=== PATIENT | female | born 1950 | race Caucasian/White ===

== ENCOUNTER 2019-12-05 10:41 | Outpatient (CLI) | payer MEDICARE ==
--- NOTE | 2019-12-12 11:55 | MMO ---
Bilateral MAMMO Bilat Screen [facility]. CLINICAL HISTORY: Patient is 69 years old and is seen for screening. The patient has no family history of breast cancer. The patient has no personal history of cancer. The patient has a history of right Excisional Biopsy more than 10 years ago - benign. VIEWS: The views performed were: bilateral craniocaudal with tomosynthesis and bilateral mediolateral oblique with tomosynthesis. FILMS COMPARED: The present examination has been compared to prior imaging studies performed at [facility] on 08/26/2015 and 09/09/2017. This study has been interpreted with the assistance of computer-aided detection. MAMMOGRAM FINDINGS: The breasts are heterogeneously dense, which could obscure a lesion on mammography. There are no suspicious masses, suspicious calcifications, or new areas of architectural distortion. IMPRESSION: THERE IS NO MAMMOGRAPHIC EVIDENCE OF MALIGNANCY. A ROUTINE FOLLOW-UP MAMMOGRAM IN 1 YEAR IS RECOMMENDED. THE RESULTS OF THIS EXAM WERE SENT TO THE PATIENT. ACR BI-RADS Category 1 - Negative MAMMOGRAPHY NOTE: 1. A negative mammogram report should not delay a biopsy if a dominant of clinically suspicious mass is present. 2. Approximately 10% to 15% of breast cancers are not detected by mammography. 3. Adenosis and dense breasts may obscure an underlying neoplasm. Reported by: Jeffrey APODACA Electonically Signed: [id number]
== END 2019-12-05 10:42 | disposition home or self-care (01) ==
LOC: BICMAMMO 10:41
PROVIDERS: ATTEND Family Medicine
DX: Z12.31 Encounter for screening mammogram for malignant neoplasm of breast (principal); Z91.89 Other specified personal risk factors, not elsewhere classified
CPT/HCPCS: 77063; 77067

== ENCOUNTER 2020-11-29 08:46 | Outpatient (CLI) | payer MEDICARE | END 2020-11-29 08:47 | disposition home or self-care (01) | LOC: BICMAMMO 08:46 | PROVIDERS: ATTEND Family Medicine | DX: R93.7 Abnormal findings on diagnostic imaging of other parts of musculoskeletal system (principal); M81.0 Age-related osteoporosis without current pathological fracture | CPT/HCPCS: 77080 ==

== ENCOUNTER 2020-12-23 12:43 | Inpatient (IN) | payer MEDICARE ==
[2020-12-23] MEDS ORDERED: Ondansetron PF 4 MG/2 ML Vial ONE (13:07)
[2020-12-23] MEDS ORDERED: Morphine 4 MG/ML VIAL ONE ×2 (13:07→17:36)
[2020-12-23 13:45] LABS: #Basophils 0.1 thou/uL (0.0-0.2); #Eosinphils 0.1 thou/uL (0.0-0.7); #Lymphocytes 1.6 thou/uL (1.20-3.40); #Monocytes 0.6 thou/uL (0.11-0.59); #Neutrophils 5.7 thou/uL (1.40-6.50); %Basophils 0.9 % (0.0-1.0); %Eosinophils 1.3 % (0.0-10.0); %Lymphocytes 20.2 % (21.0-51.0); %Monocytes 6.8 % (0.0-10.0); %Neutrophils 70.8 % (42.0-75.0); Hemoglobin 13.7 g/dL (12.0-16.0); Mean Corpuscular HGB CONC 33.7 g/dL (32.0-36.0); Mean Corpuscular Hemoglobin 32.9 pg (27.0-31.0); Mean Corpuscular Volume 97.3 fL (78.0-98.0); Mean Platelet Volume 10.5 fL (7.4-10.4); Platelet Count 122 thou/uL (130-400); RBC Distribution Width 12.2 % (11.5-14.5); Red Blood Cell (RBC) Count 4.17 mill/uL (4.20-5.40); White Blood Cell (WBC) Count 8.1 thou/uL (4.8-10.8)
[2020-12-23] MEDS ORDERED: Diazepam 10 MG/2 ML SYRINGE ONE (13:49)
[2020-12-23 14:13] LABS: ALT (SGPT) 43 U/L (8-55); AST (SGOT) 41 U/L (5-34); Albumin 4.6 g/dL (3.4-4.8); Alkaline Phosphatase 142 U/L (40-110); Anion Gap 17 mmol/L (10-20); BUN (Urea Nitrogen) 18 mg/dL (9.8-20.1); Bilirubin, Total 0.6 mg/dL (0.2-1.2); Calc. Creatinine Clearance 0 mL/min (70-130); Calcium 9.8 mg/dL (7.8-10.44); Carbon Dioxide 25 mmol/L (23-31); Chloride 101 mmol/L (98-107); Globulin 2.8 g/dL (2.4-3.5); Glucose 106 mg/dL (83-110); Potassium 3.7 mmol/L (3.5-5.1); Protein, Total 7.4 g/dL (5.8-8.1); Sodium 139 mmol/L (136-145)
[2020-12-23] MEDS ORDERED: CEFAZOLIN 2 GM in Premix Bag 1 BAG IVPB SCH (14:45)
[2020-12-23] MEDS ORDERED: Ondansetron PF 4 MG/2 ML Vial IVP PRN (15:11)
[2020-12-23] MEDS ORDERED: Dextrose 5% in Water 1,000 ML IV PRN (15:11)
[2020-12-23] MEDS ORDERED: Dextrose 50% Abboject 50 ML SYRINGE SLOW IVP PRN (15:11)
[2020-12-23] MEDS ORDERED: Morphine 4 MG/ML VIAL SLOW IVP PRN (15:11)
[2020-12-23] MEDS ORDERED: traMADol HCl 50 MG TAB PO PRN ×2 (15:14)
[2020-12-23] MEDS ORDERED: Sodium Chloride 0.9% 1,000 ML IV SCH (15:15)
[2020-12-23] MEDS ORDERED: Ketorolac Tromethamine 30 MG/ML VIAL ONE (15:15)
[2020-12-23] MEDS: Acetaminophen 500 MG TAB PO SCH (19:08)
[2020-12-23 19:49] VITALS: BMI 20.7
[2020-12-23] MEDS: Cyclobenzaprine 10 MG TAB PO PRN (20:08)
[2020-12-23] MEDS: Famotidine 20 MG TAB PO SCH (20:08)
[2020-12-23] MEDS: Gabapentin 300 MG CAP PO SCH (20:09)
[2020-12-23] MEDS: Senokot S 8.6-50 MG TAB PO SCH (20:10)
[2020-12-23] MEDS: Ibuprofen 200 MG TAB PO SCH (22:51)
[2020-12-24] MEDS: Acetaminophen 500 MG TAB PO SCH ×4 (03:01→18:54)
[2020-12-24 03:26] LABS: #Eosinphils 0.1 thou/uL (0.0-0.7); #Lymphocytes 1.7 thou/uL (1.20-3.40); #Monocytes 0.6 thou/uL (0.11-0.59); #Neutrophils 4.8 thou/uL (1.40-6.50); %Basophils 0.2 % (0.0-1.0); %Eosinophils 1.1 % (0.0-10.0); %Lymphocytes 23.3 % (21.0-51.0); %Neutrophils 67.4 % (42.0-75.0); Hemoglobin 11.7 g/dL (12.0-16.0); Mean Corpuscular HGB CONC 34.4 g/dL (32.0-36.0); Mean Corpuscular Hemoglobin 33.7 pg (27.0-31.0); Mean Corpuscular Volume 97.9 fL (78.0-98.0); Mean Platelet Volume 10.9 fL (7.4-10.4); Platelet Count 97 thou/uL (130-400); RBC Distribution Width 12.2 % (11.5-14.5); Red Blood Cell (RBC) Count 3.46 mill/uL (4.20-5.40); White Blood Cell (WBC) Count 7.2 thou/uL (4.8-10.8)
[2020-12-24 03:35] LABS: Anion Gap 12 mmol/L (10-20); BUN (Urea Nitrogen) 19 mg/dL (9.8-20.1); Calc. Creatinine Clearance 67 mL/min (70-130); Calcium 8.9 mg/dL (7.8-10.44); Carbon Dioxide 25 mmol/L (23-31); Chloride 107 mmol/L (98-107); Glucose 92 mg/dL (83-110); Magnesium 1.9 mg/dL (1.6-2.6); Phosphorus 4.2 mg/dL (2.3-4.7); Sodium 140 mmol/L (136-145)
[2020-12-24] MEDS: Ibuprofen 200 MG TAB PO SCH ×3 (05:44→21:23)
[2020-12-24 08:07] LABS: SARS-CoV-2 PCR by NAA Not Detected (NotDetected)
[2020-12-24] MEDS: Famotidine 20 MG TAB PO SCH ×2 (08:14→20:14)
[2020-12-24] MEDS: Senokot S 8.6-50 MG TAB PO SCH ×2 (08:15→20:13)
[2020-12-24] MEDS: Gabapentin 300 MG CAP PO SCH ×3 (08:15→20:14)
[2020-12-24] MEDS: Polyethylene Glycol 3350 17 GM Packet PO SCH (08:15)
[2020-12-24] MEDS ORDERED: traMADol HCl 50 MG TAB PO PRN (10:56)
[2020-12-24] MEDS ORDERED: Midazolam HCl 2 mg/2 ml Vial ONE (13:20)
[2020-12-24] MEDS ORDERED: Fentanyl 100 MCG/2 ML VIAL ONE ×2 (13:20→14:12)
[2020-12-24] MEDS ORDERED: Ondansetron PF 4 MG/2 ML Vial ONE ×2 (13:31→14:15)
[2020-12-24] MEDS ORDERED: Neomycin-Polymyxin 1 ML AMP ONE ×2 (13:39→13:41)
[2020-12-24] MEDS: traMADol HCl 50 MG TAB PO SCH ×2 (13:41→18:55)
[2020-12-24] MEDS ORDERED: ceFAZolin 2 GM/DEX 5% 100 ML BAG ONE (14:03)
[2020-12-24] MEDS ORDERED: Bupivacaine HCl 0.5%/Epinephrine 1:200,000/PF 30 ml Vial ONE (14:15)
[2020-12-24] MEDS ORDERED: Lidocaine 1% PF 5 ML VIAL ONE (14:15)
[2020-12-24] MEDS ORDERED: Dexamethasone 20 MG/5 ML VIAL ONE (14:15)
[2020-12-24] MEDS ORDERED: PROPOFOL 200 MG/20 ML VIAL ONE (14:15)
[2020-12-24] MEDS ORDERED: Rocuronium Bromide 10 MG/ML (10ML VIAL) ONE (14:15)
[2020-12-24] MEDS ORDERED: ePHEDrine 50 MG/ML VIAL ONE (14:15)
[2020-12-24] MEDS ORDERED: SUGAMMADEX SODIUM 200 MG/2 ML VIAL ONE (15:14)
[2020-12-24] MEDS ORDERED: Promethazine HCl 25 MG/ML VIAL IVPB PRN (15:40)
[2020-12-24] MEDS ORDERED: Promethazine HCl 25 MG/ML VIAL IM PRN (15:40)
[2020-12-24] MEDS ORDERED: Ondansetron HCl/PF 4 MG/2 ML Vial IVP PRN (15:40)
[2020-12-24] MEDS: CEFAZOLIN 2 GM, Admixture Fee 1 EACH in Sodium Chloride 0.9% 100 ML IVPB SCH (20:17)
[2020-12-24] MEDS: Cyclobenzaprine 10 MG TAB PO PRN (21:23)
[2020-12-25] MEDS: traMADol HCl 50 MG TAB PO SCH ×4 (04:32→18:51)
[2020-12-25] MEDS: Acetaminophen 500 MG TAB PO SCH ×4 (04:32→17:52)
[2020-12-25] MEDS ORDERED: Thyroid 60 MG TAB PO SCH ×2 (05:30→11:00)
[2020-12-25] MEDS: CEFAZOLIN 2 GM, Admixture Fee 1 EACH in Sodium Chloride 0.9% 100 ML IVPB SCH (05:45)
[2020-12-25] MEDS: Ibuprofen 200 MG TAB PO SCH ×3 (05:45→20:59)
[2020-12-25] MEDS: Famotidine 20 MG TAB PO SCH ×2 (08:57→21:00)
[2020-12-25] MEDS: Senokot S 8.6-50 MG TAB PO SCH ×2 (08:57→21:01)
[2020-12-25] MEDS: Gabapentin 300 MG CAP PO SCH ×3 (08:58→21:00)
[2020-12-25] MEDS: Polyethylene Glycol 3350 17 GM Packet PO SCH (08:59)
[2020-12-25] MEDS: Aspirin 81 mg Enteric Coated Tablet PO SCH ×3 (09:01→21:00)
[2020-12-25 18:33] LABS: #Eosinphils 0.1 thou/uL (0.0-0.7); #Lymphocytes 1.5 thou/uL (1.20-3.40); #Monocytes 0.7 thou/uL (0.11-0.59); #Neutrophils 6.9 thou/uL (1.40-6.50); %Basophils 0.4 % (0.0-1.0); %Eosinophils 1.3 % (0.0-10.0); %Lymphocytes 16.6 % (21.0-51.0); %Monocytes 7.5 % (0.0-10.0); %Neutrophils 74.2 % (42.0-75.0); Mean Corpuscular Hemoglobin 33.2 pg (27.0-31.0); Mean Corpuscular Volume 97.7 fL (78.0-98.0); Mean Platelet Volume 10.4 fL (7.4-10.4); Platelet Count 97 thou/uL (130-400); RBC Distribution Width 12.1 % (11.5-14.5); Red Blood Cell (RBC) Count 3.01 mill/uL (4.20-5.40); White Blood Cell (WBC) Count 9.2 thou/uL (4.8-10.8)
[2020-12-25 19:14] LABS: Anion Gap 12 mmol/L (10-20); BUN (Urea Nitrogen) 20 mg/dL (9.8-20.1); Calc. Creatinine Clearance 46 mL/min (70-130); Calcium 8.9 mg/dL (7.8-10.44); Carbon Dioxide 25 mmol/L (23-31); Chloride 101 mmol/L (98-107); Glucose 140 mg/dL (83-110); Magnesium 1.8 mg/dL (1.6-2.6); Phosphorus 2.4 mg/dL (2.3-4.7); Potassium 3.8 mmol/L (3.5-5.1); Sodium 134 mmol/L (136-145)
[2020-12-25] MEDS ORDERED: Sodium Chloride 0.9% 1,000 ML IV SCH (20:45)
[2020-12-25] MEDS ORDERED: Hydrocortisone Sod Succ/PF 100 mg/2 ml Vial IVP SCH (21:00)
[2020-12-25] MEDS ORDERED: Magnesium Sulfate 3 GM in Sodium Chloride 0.9% 250 ML 250 ML IVPB SCH (21:00)
[2020-12-25] MEDS ORDERED: Potassium Phosphate 15 MMOL in Sodium Chloride 0.9% 250 ML 250 ML IVPB SCH (21:00)
[2020-12-26] MEDS: Acetaminophen 500 MG TAB PO SCH ×6 (01:17→23:36)
[2020-12-26] MEDS: Hydrocortisone Sod Succ/PF 250 mg/2 ml Vial SLOW IVP SCH ×2 (01:17→05:59)
[2020-12-26] MEDS: traMADol HCl 50 MG TAB PO SCH ×5 (01:21→23:37)
[2020-12-26] MEDS: Ibuprofen 200 MG TAB PO SCH ×3 (05:59→20:31)
[2020-12-26 06:22] LABS: #Lymphocytes 0.5 thou/uL (1.20-3.40); #Monocytes 0.3 thou/uL (0.11-0.59); #Neutrophils 7.5 thou/uL (1.40-6.50); %Basophils 0.2 % (0.0-1.0); %Eosinophils 0.4 % (0.0-10.0); %Monocytes 3.4 % (0.0-10.0); %Neutrophils 90.1 % (42.0-75.0); Hemoglobin 9.7 g/dL (12.0-16.0); Mean Corpuscular HGB CONC 33.2 g/dL (32.0-36.0); Mean Corpuscular Hemoglobin 32.5 pg (27.0-31.0); Mean Corpuscular Volume 98.1 fL (78.0-98.0); Mean Platelet Volume 11.2 fL (7.4-10.4); Platelet Count 94 thou/uL (130-400); RBC Distribution Width 12.4 % (11.5-14.5); Red Blood Cell (RBC) Count 2.97 mill/uL (4.20-5.40); White Blood Cell (WBC) Count 8.3 thou/uL (4.8-10.8)
[2020-12-26 06:33] LABS: Anion Gap 11 mmol/L (10-20); BUN (Urea Nitrogen) 18 mg/dL (9.8-20.1); Calc. Creatinine Clearance 70 mL/min (70-130); Calcium 8.1 mg/dL (7.8-10.44); Carbon Dioxide 24 mmol/L (23-31); Chloride 109 mmol/L (98-107); Glucose 147 mg/dL (83-110); Magnesium 2.5 mg/dL (1.6-2.6); Phosphorus 3.2 mg/dL (2.3-4.7); Potassium 4.4 mmol/L (3.5-5.1); Sodium 140 mmol/L (136-145)
[2020-12-26] MEDS: Thyroid 60 MG TAB PO SCH (07:59)
[2020-12-26] MEDS: Senokot S 8.6-50 MG TAB PO SCH ×2 (08:02→20:32)
[2020-12-26] MEDS: Gabapentin 300 MG CAP PO SCH (08:02)
[2020-12-26] MEDS: Aspirin 81 mg Enteric Coated Tablet PO SCH ×2 (08:02→20:30)
[2020-12-26] MEDS: Famotidine 20 MG TAB PO SCH (08:02)
[2020-12-26] MEDS: Polyethylene Glycol 3350 17 GM Packet PO SCH (08:04)
[2020-12-26] MEDS: Hydrocortisone Sod Succ/PF 100 mg/2 ml Vial IVP SCH ×3 (12:07→23:38)
[2020-12-26] MEDS: Gabapentin 100 MG CAP PO SCH ×2 (14:48→20:32)
[2020-12-26] MEDS: Cyclobenzaprine 10 MG TAB PO PRN (20:32)
[2020-12-26] MEDS ORDERED: Melatonin 3 MG TAB PO PRN (22:01)
[2020-12-27] MEDS: Acetaminophen 500 MG TAB PO SCH (05:28)
[2020-12-27] MEDS: Ibuprofen 200 MG TAB PO SCH (05:29)
[2020-12-27] MEDS: traMADol HCl 50 MG TAB PO SCH (05:30)
[2020-12-27] MEDS: Hydrocortisone Sod Succ/PF 100 mg/2 ml Vial IVP SCH (05:30)
[2020-12-27] MEDS: Thyroid 60 MG TAB PO SCH (06:12)
[2020-12-27] MEDS: Gabapentin 100 MG CAP PO SCH (08:54)
[2020-12-27] MEDS: Aspirin 81 mg Enteric Coated Tablet PO SCH (08:54)
[2020-12-27] MEDS: Senokot S 8.6-50 MG TAB PO SCH (08:54)
[2020-12-27] MEDS: Polyethylene Glycol 3350 17 GM Packet PO SCH (08:54)
[2020-12-27] MEDS ORDERED: Ibuprofen 200 MG TAB PO PRN (09:00)
[2020-12-27 12:02] VITALS: BP 115/66; TEMP 97.6
== END 2020-12-27 13:46 | disposition home or self-care (01) | DRG 522 ==
LOC: ERS 12:43 → SURG A 15:11
PROVIDERS: ADMIT Specialist; ATTEND Surgery
PROC: 0SRR0JA Replacement of Right Hip Joint, Femoral Surface with Synthetic Substitute, Uncemented, Open Approach (ICD-10-PCS; principal; 2020-12-24)
DX: S72.001A Fracture of unspecified part of neck of right femur, initial encounter for closed fracture (principal); E27.40 Unspecified adrenocortical insufficiency; R91.1 Solitary pulmonary nodule; M06.9 Rheumatoid arthritis, unspecified; E03.9 Hypothyroidism, unspecified; R73.03 Prediabetes; M81.0 Age-related osteoporosis without current pathological fracture; W19.XXXA Unspecified fall, initial encounter; Z20.822 Contact with and (suspected) exposure to COVID-19; Z98.51 Tubal ligation status; Z90.89 Acquired absence of other organs; Z98.890 Other specified postprocedural states; Z88.1 Allergy status to other antibiotic agents; Z91.011 Allergy to milk products; Z88.8 Allergy status to other drugs, medicaments and biological substances
CPT/HCPCS: 36415; 36416; 71045; 72170; 80048; 80053; 82533; 83735; 84100; 84484; 85025; 93005; 94760; 96374; 96375; 96376; G0390; J0690; J1100; J1720; J1885; J2250; J2270; J2405; J2704; J3010; J3360; J3475; J3490; J7050; U0003; U0005

== ENCOUNTER 2021-12-08 11:09 | Outpatient (CLI) | payer MEDICARE, OTHER | END 2021-12-08 11:10 | disposition home or self-care (01) | LOC: BICMAMMO 11:09 | PROVIDERS: ATTEND Family Medicine | DX: Z12.31 Encounter for screening mammogram for malignant neoplasm of breast (principal); Z91.89 Other specified personal risk factors, not elsewhere classified | CPT/HCPCS: 77063; 77067 ==

== ENCOUNTER 2023-01-13 10:56 | Outpatient (CLI) | payer OTHER | END 2023-01-13 10:57 | disposition home or self-care (01) | LOC: BICMAMMO 10:56 | PROVIDERS: ATTEND Student in an Organized Health Care Education/Training Program | DX: Z12.31 Encounter for screening mammogram for malignant neoplasm of breast (principal); M81.0 Age-related osteoporosis without current pathological fracture; N64.89 Other specified disorders of breast; Z91.89 Other specified personal risk factors, not elsewhere classified | CPT/HCPCS: 77063; 77067; 77080 ==

== ENCOUNTER 2023-01-19 13:43 | Outpatient (CLI) | payer OTHER | END 2023-01-19 13:44 | disposition home or self-care (01) | LOC: BICMAMMO 13:43 | PROVIDERS: ATTEND Student in an Organized Health Care Education/Training Program | DX: N64.89 Other specified disorders of breast (principal) | CPT/HCPCS: 76642; 77065; G0279 ==

== ENCOUNTER 2023-07-22 09:46 | Outpatient (CLI) | payer MEDICARE | END 2023-07-22 09:47 | disposition home or self-care (01) | LOC: BICMAMMO 09:46 | PROVIDERS: ATTEND Student in an Organized Health Care Education/Training Program | DX: N64.89 Other specified disorders of breast (principal) | CPT/HCPCS: 77065; G0279 ==

== ENCOUNTER 2024-01-17 08:24 | Outpatient (CLI) | payer MEDICARE | END 2024-01-17 08:25 | disposition home or self-care (01) | LOC: BICMAMMO 08:24 | PROVIDERS: ATTEND Internal Medicine Rheumatology | DX: M81.0 Age-related osteoporosis without current pathological fracture (principal); M85.852 Other specified disorders of bone density and structure, left thigh | CPT/HCPCS: 77080 ==

== ENCOUNTER 2024-08-29 13:05 | Outpatient (CLI) | payer MEDICARE, BC | END 2024-08-29 13:06 | disposition home or self-care (01) | LOC: BICMAMMO 13:05 | PROVIDERS: ATTEND Family Medicine | DX: Z12.31 Encounter for screening mammogram for malignant neoplasm of breast (principal); Z85.828 Personal history of other malignant neoplasm of skin; Z91.89 Other specified personal risk factors, not elsewhere classified | CPT/HCPCS: 77063; 77067 ==

== ENCOUNTER 2025-01-18 12:09 | Outpatient (CLI) | payer MEDICARE, BC | END 2025-01-18 12:10 | disposition home or self-care (01) | LOC: BICMAMMO 12:09 | PROVIDERS: ATTEND Physician Assistant | DX: M81.0 Age-related osteoporosis without current pathological fracture (principal) | CPT/HCPCS: 77080 ==